=== PATIENT | male | born 1970 | race Caucasian/White ===

== ENCOUNTER 2016-11-01 14:11 | Emergency (ER) | payer OTHER ==
[~2016-11-01] VITALS: Ht 190.5 cm; Wt 107.0 kg
[2016-11-01] MEDS ORDERED: NAPROXEN500 MG PO (16:40)
[2016-11-01] MEDS ORDERED: FLEXERIL10 MG PO (16:53)
[2016-11-01 17:10] VITALS: BP 172/101
== END 2016-11-01 17:10 | disposition home or self-care (01) ==
LOC: EME 14:11
DX: R51 Headache (principal); M54.5 Low back pain; M54.2 Cervicalgia; V44.5XXA Car driver injured in collision with heavy transport vehicle or bus in traffic accident, initial encounter; I10 Essential (primary) hypertension
CPT/HCPCS: 72040; 72100; 99281; 99284